=== PATIENT | female | born 1975 | race American Indian/Alaskan Native ===

== ENCOUNTER 2018-10-19 17:15 | Emergency (ER) | payer SELFPAY ==
[2018-10-19 17:37] VITALS: BMI 29.1
[2018-10-19 17:43] VITALS: O2SAT 100
--- NOTE | 2018-10-19 17:47 | C.PDOC ---
History Of Present Illness 43-year-old female, whose PMHx includes sciatica, presents to the ED c/o worsening symptoms today. Patient states she was going down some steps when she accidentally missed a step, but caught herself to avoid falling. When she twisted her body, she felt a sharp pain to her back radiating down to her right leg. Patient rates her pain 8/10 in severity. States she took Tylenol without relief. She denies head injuries, LOC, other injuries, weakness dizziness. Time Seen by Provider: 10/19/18 17:43 Chief Complaint (Nursing): Lower Extremity Problem/Injury History Per: Patient History/Exam Limitations: no limitations Onset/Duration Of Symptoms: Hrs Current Symptoms Are (Timing): Still Present Past Medical History Reviewed: Historical Data, Nursing Documentation, Vital Signs Vital Signs: Last Vital Signs Temp 99.1 F 10/19/18 17:37 Pulse 102 H 10/19/18 17:37 Resp 17 10/19/18 17:37 BP 129/86 10/19/18 17:37 Pulse Ox 100 10/19/18 17:37 Primary Care Provider: FAMILY PROVIDER,NO - Medical History PMH: No Chronic Diseases Surgical History: No Surg Hx Family History: States: Unknown Family Hx - Social History Hx Alcohol Use: No Hx Substance Use: No - Immunization History Hx Tetanus Toxoid Vaccination: No Hx Influenza Vaccination: Yes (Mar 2018) Hx Pneumococcal Vaccination: No Review Of Systems Musculoskeletal: Positive for: Back Pain, Leg Pain (right) Neurological: Negative for: Weakness, Dizziness Physical Exam - Physical Exam Appears: Non-toxic, No Acute Distress Skin: Normal Color, Warm, Dry Head: Atraumatic, Normacephalic Eye(s): bilateral: Normal Inspection Oral Mucosa: Moist Neck: Supple Chest: Symmetrical, No Deformity, No Tenderness Cardiovascular: Rhythm Regular, No Murmur Respiratory: Normal Breath Sounds, No Rales, No Rhonchi, No Wheezing Gastrointestinal/Abdominal: Soft, No Tenderness Back: Decreased ROM (secondary to pain ), Other (tenderness to right sacral region ) Extremity: Normal ROM (bilateral legs, hips and knees ), Capillary Refill (less than 2 seconds ), No Other (ecchymosis, erythema or edema ) Neurological/Psych: Oriented x3, Normal Speech, Normal Cognition, Normal Motor, Normal Sensation Gait: Steady ED Course And Treatment O2 Sat by Pulse Oximetry: 100 (on RA) Pulse Ox Interpretation: Normal Medical Decision Making Medical Decision Making: Plan: Flexeril PO and Percocet PO given. Patient to follow up in clinic for pain management d/w Dr. Anne and patient will be discharged with Tylenol, Pred, Flexeril, and Lidoderm patches patient is stable for discharge Disposition Counseled Patient/Family Regarding: Diagnosis, Need For Followup, Rx Given - Disposition Referrals: [facility] [Outside] Disposition: HOME/ ROUTINE Disposition Time: 18:52 Condition: STABLE Additional Instructions: Use meds as instructed Follow up in Clinic in 1-2 days if symptoms persist Return to the ED if symptoms worsen Prescriptions: Acetaminophen [Tylenol] 650 mg PO Q6 PRN #30 capsule PRN Reason: Pain, Moderate (4-7) Cyclobenzaprine [Flexeril] 10 mg PO TID PRN #15 tab PRN Reason: Muscle Spasm Lidocaine 5% [Lidoderm] 1 patch TOP PRN PRN #10 patch PRN Reason: Pain, Moderate (4-7) predniSONE [predniSONE Tab] 60 mg PO DAILY #15 tab Instructions: Sciatica (DC) Forms: [employer] (Kinyarwanda) - Clinical Impression Clinical Impression: Sciatica - PA / GAS BRAZER / Resident Statement MD/DO has reviewed & agrees with the documentation as recorded. - Scribe Statement The provider has reviewed the documentation as recorded by the Scribe (Mariposa Alvarenga) All medical record entries made by the Scribe were at my direction and personally dictated by me. I have reviewed the chart and agree that the record accurately reflects my personal performance of the history, physical exam, medical decision making, and the department course for this patient. I have also personally directed, reviewed, and agree with the discharge instructions and disposition.
[2018-10-19] MEDS ORDERED: Oxycodone/Acetaminophen 5/325 mg Tab PO STA (18:51)
[2018-10-19] MEDS ORDERED: Oxycodone/Acetaminophen 5/325 mg Tab ONE (18:59)
[2018-10-19 19:03] VITALS: BP 118/83; PULSE 90; RESP 18; TEMP 98.4
== END 2018-10-19 19:05 | disposition home or self-care (01) ==
LOC: C.ER 17:15
DX: M54.30 Sciatica, unspecified side (principal)